=== PATIENT | male | born 1990 | race African-American/Black ===

== ENCOUNTER 2023-11-01 04:01 | Emergency (ER) | payer SELFPAY ==
[2023-11-01] MEDS: Sodium Chloride 0.9% 10 ML Syringe FLUSH PRN (04:19)
[2023-11-01] MEDS: Sodium Chloride 0.9% 2.5 ML Syringe FLUSH PRN (04:19)
[2023-11-01] MEDS: Ondansetron 4 MG/2 ML SDV IVPUSH ONE (04:19)
[2023-11-01] MEDS: Morphine 4 MG/ML Syringe IVPUSH ONE (04:19)
[2023-11-01] MEDS: Diphtheria,Pertussis(Acell),Tetanus Vaccine 0.5 ML Syringe IM ONE (04:27)
[2023-11-01] MEDS: Bacitracin Oint 1 GM U/D Packet TOP ONE (04:34)
== END 2023-11-01 06:18 | disposition home or self-care (01) ==
LOC: MW.ED 04:01
DX: S70.01XA Contusion of right hip, initial encounter (principal); S61.402A Unspecified open wound of left hand, initial encounter; S61.401A Unspecified open wound of right hand, initial encounter; Z23 Encounter for immunization; Z79.899 Other long term (current) drug therapy; Z75.8 Other problems related to medical facilities and other health care; V23.49XA Other motorcycle driver injured in collision with car, pick-up truck or van in traffic accident, initial encounter
CPT/HCPCS: 71045; 73130; 73502; 90471; 90715; 96374; 96375; 99284; J2270; J2405; J3490

== ENCOUNTER 2023-12-21 04:50 | Emergency (ER) | payer OTHER ==
[2023-12-21] MEDS: HYDROmorphone 1 MG/ML Syringe IVPUSH ONE (05:07)
== END 2023-12-21 05:15 | disposition home or self-care (01) ==
LOC: MW.ED 04:50
DX: T23.262A Burn of second degree of back of left hand, initial encounter (principal); T31.0 Burns involving less than 10% of body surface; Z79.899 Other long term (current) drug therapy; X10.2XXA Contact with fats and cooking oils, initial encounter
CPT/HCPCS: 96374; 99284; J1171